=== PATIENT | female | born 1990 | race African-American/Black ===

== ENCOUNTER 2022-12-11 12:15 | Emergency (ER) | payer OTHER ==
[2022-12-11] MEDS ORDERED: Ketorolac Tromethamine 30 MG/ML VIAL ONE (14:12)
[2022-12-11 14:42] LABS: #Eosinphils 0.1 10x3/uL (0.0-0.5); %Basophils 0.3 % (0.0-2.0); %Eosinophils 0.5 % (0.0-6.0); %Neutrophils 71.8 % (40.0-75.0); Hemoglobin 12.1 g/dL (12.0-15.5); Mean Corpuscular HGB CONC 33.1 g/dL (32.0-36.0); Mean Corpuscular Hemoglobin 27.9 pg (27.0-33.0); Mean Corpuscular Volume 84.3 fl (81.6-98.3); Mean Platelet Volume 9.2 fl (7.4-10.4); Platelet Count 359 10x3/uL (150-450); RBC Distribution Width 12.6 % (11.5-14.5); Red Blood Cell (RBC) Count 4.34 10x6/uL (3.90-5.03); White Blood Cell (WBC) Count 11.2 10x3/uL (3.5-10.5)
[2022-12-11 14:51] LABS: BHCG - Serum Negative (NEGATIVE); Pregs Control Background? CLEAR/WHITE (CLR/WHITE); Pregs Control Bar Appear? YES (CONTROL BAR)
[2022-12-11 15:05] LABS: ALT (SGPT) 23 U/L (8-55); AST (SGOT) 16 U/L (5-34); Alkaline Phosphatase 44 U/L (40-110); Anion Gap 13 mmol/L (10-20); BUN (Urea Nitrogen) 8 mg/dL (7.0-18.7); Bilirubin, Total 1.1 mg/dL (0.2-1.2); CK (CPK) 51 U/L (29-168); Calc. Creatinine Clearance 0 mL/min (70-130); Calcium 9.3 mg/dL (7.8-10.44); Carbon Dioxide 23 mmol/L (22-29); Chloride 103 mmol/L (98-107); Estimated GFR 109; Globulin 3.7 g/dL (2.4-3.5); Glucose 91 mg/dL (70-105); Lipase 13 U/L (8-78); Potassium 3.6 mmol/L (3.5-5.1); Protein, Total 7.7 g/dL (6.0-8.3); Sodium 135 mmol/L (136-145)
== END 2022-12-11 15:27 | disposition home or self-care (01) ==
LOC: CSHERS 12:15
DX: M94.0 Chondrocostal junction syndrome [Tietze] (principal); I10 Essential (primary) hypertension
CPT/HCPCS: 71045; 80053; 82550; 83690; 84484; 84703; 85025; 93005; 96372; J1885